=== PATIENT | male | born 1955 | race Caucasian/White ===

== ENCOUNTER 2019-01-24 23:06 | Emergency (ER) | payer OTHER ==
[2019-01-24] MEDS ORDERED: Acetaminophen/Codeine 300-30 MG Tab PO ONE (23:07)
[2019-01-24] MEDS ORDERED: Amoxicillin 500 MG Cap PO ONE (23:07)
--- NOTE | 2019-01-25 02:03 | ER ---
DATE SEEN: 01/24/2019 REASON FOR VISIT: Tooth pain. HISTORY OF PRESENT ILLNESS: A 63-year-old complaining of left upper jaw pain on the maxillary area for the last few days. Tonight, unable to sleep because of the pain. On the December 31, he had a root canal. He took 1 course of amoxicillin, but he feels that he needs another course. Moderate to severe pain with no radiation, but causing also a headache. PAST MEDICAL HISTORY: Seasonal allergies and hypertension. MEDICATIONS: Please see Epic. ALLERGIES: No known medication allergies. PHYSICAL EXAMINATION: VITAL SIGNS: His blood pressure and temperature are normal. HEAD: Atraumatic. ORAL: Oral examination revealed tooth #16 with a cavity. There is exquisite tenderness to palpation of the maxilla on the left side and left submandibular lymphadenopathy that is tender. IMPRESSION: Tooth pain, possibly infection. TREATMENT: Amoxicillin and Tylenol No.3 to use for pain. He is advised to see his dentist on Sunday. /[id number] JUAN RAMON/MARIA DEL ROSARIO
== END 2019-01-24 23:40 | disposition home or self-care (01) ==
LOC: FB.ED 23:06
DX: K08.89 Other specified disorders of teeth and supporting structures (principal); I10 Essential (primary) hypertension
CPT/HCPCS: 99282; A9270

== ENCOUNTER 2023-09-11 06:39 | Emergency (ER) | payer MEDICARE, OTHER ==
[2023-09-11 07:16] LABS: BASOPHILS PERCENT AUTO 0.4 % (0.3-3.8); EOSINOPHILS PERCENT AUTO 0.5 % (0.1-6.8); HEMATOCRIT 44.9 % (38.3-50.1); HEMOGLOBIN 15.9 g/dL (12.9-17.7); LYMPHOCYTES ABSOLUTE AUTO 1.4 x10-3/uL (0.5-4.5); LYMPHOCYTES PERCENT AUTO 23.4 % (15.8-45.3); MEAN CORPUSCULAR HEMOGLOBIN 31.4 pg (27.0-33.3); MEAN CORPUSCULAR HGB CONC 35.5 g/dL (28.7-35.3); MEAN CORPUSCULAR VOLUME 88.5 fL (80.8-98.7); MEAN PLATELET VOLUME 8.9 fL (6.7-11.0); MONOCYTES ABSOLUTE AUTO 0.5 x10-3/uL (0.0-1.2); MONOCYTES PERCENT AUTO 7.4 % (5.5-15.2); NEUTROPHILS ABSOLUTE AUTO 4.2 x10-3/uL (1.7-6.9); NEUTROPHILS PERCENT AUTO 68.3 % (40.3-71.8); PLATELET COUNT,PLT 269 x10(3)uL (117-477); RED BLOOD CELL COUNT 5.07 x10(6)uL (3.90-5.90); WHITE BLOOD CELL COUNT,WBC 6.1 x10-3/uL (3.2-10.1)
[2023-09-11 07:21] LABS: BLOOD UREA NITROGEN,BUN 22 mg/dL (7-18); BUN/CREATININE RATIO 14.7 (9-20); CALCIUM 10.1 mg/dL (8.6-10.2); CARBON DIOXIDE,CO2 29 mmol/L (21-32); CHLORIDE,CL 97 mmol/L (100-110); CREATININE 1.5 mg/dL (0.70-1.30); ESTIMATED GFR 51 mL/min (>60); GLUCOSE RANDOM 148 mg/dL (80-116); POTASSIUM,K 3.2 mmol/L (3.5-5.3); SODIUM,NA 135 mmol/L (135-145)
[2023-09-11 07:26] LABS: A/G RATIO 1.1; ALANINE AMINOTRANSFERASE,ALT 52 U/L (12-36); ALBUMIN 4.3 g/dL (3.2-4.6); ALKALINE PHOSPHATASE 60 IU/L (56-112); ASPARTATE AMNIOTRANSFERASE,AST 24 IU/L (5-25); BILIRUBIN TOTAL 0.9 mg/dL (0.1-1.3); PROTEIN TOTAL,TP 8.1 g/dL (6.0-8.0)
[2023-09-11] MEDS: Nitroglycerin 0.4 MG Tab.SL SL ONE (07:40)
[2023-09-11] MEDS: Iopamidol 755 Mg/ML 100 ML Bottle IV ONE (08:40)
[2023-09-11 08:41] LABS: INFLUENZA A NAA NEGATIVE (NEGATIVE); INFLUENZA B NAA NEGATIVE (NEGATIVE); RESPIRATORY SYNCYTIAL VIR NAA NEGATIVE (NEGATIVE)
[2023-09-11 08:45] LABS: CORONAVIRUS COVID-19 NAA NEGATIVE (NEGATIVE)
[2023-09-11] MEDS: Sodium Chloride 0.9% 1,000 ML IV ONE (08:45)
[2023-09-11] MEDS: Sodium Chloride 0.9% 10 ML Syringe FLUSH PRN (08:45)
[2023-09-11 09:18] LABS: BILIRUBIN,URINE NEGATIVE (NEGATIVE); GLUCOSE,URINE NORMAL (NORMAL); KETONES,URINE NEGATIVE (NEGATIVE); LEUKOCYTE ESTERASE,URINE NEGATIVE (NEGATIVE); NITRITE,URINE NEGATIVE (NEGATIVE); OCCULT BLOOD,URINE NEGATIVE (NEGATIVE); PH,URINE 6.5 (5.0-6.5); PROTEIN,URINE NEGATIVE (NEGATIVE); UROBILINOGEN,URINE NORMAL (NEGATIVE)
[2023-09-11 09:27] LABS: APPEARANCE,URINE SLIGHTLY CLOUDY (CLEAR); COLOR,URINE YELLOW (YELLOW)
[2023-09-11 09:28] LABS: BACTERIA,URINE FEW (NS); SQUAMOUS EPITHELIAL CELLS,UR FEW (NS,R,O); WBC,URINE 0-5 (0-5)
== END 2023-09-11 10:23 | disposition home or self-care (01) ==
LOC: FB.ED 06:39
DX: R07.89 Other chest pain (principal); I12.9 Hypertensive chronic kidney disease with stage 1 through stage 4 chronic kidney disease, or unspecified chronic kidney disease; N18.9 Chronic kidney disease, unspecified; I11.9 Hypertensive heart disease without heart failure; R73.9 Hyperglycemia, unspecified; E87.6 Hypokalemia; R94.31 Abnormal electrocardiogram [ECG] [EKG]; Z79.899 Other long term (current) drug therapy
CPT/HCPCS: 0241U; 36415; 71045; 71275; 80053; 81001; 83605; 83735; 83880; 84484; 85025; 85379; 86140; 87040; 93005; 96360; 99285-25; A9270-GY; J3490; J7030; Q9967